=== PATIENT | female | born 1955 | race Caucasian/White ===

== ENCOUNTER 2019-01-20 04:46 | Inpatient (IN) | payer OTHER ==
[~2019-01-20] VITALS: Ht 167.6 cm; Wt 98.3 kg
[~2019-01-20 04:46] MED LIST: LEVFLO500 PO; METR250 PO; TOLN45 TOP
[2019-01-20 05:35] LABS: PCO2 Arterial 38.1 mmHg (35-45); PO2 Arterial 406 mmHg (80-100); pH Blood Arterial 7.44 (7.35-7.45)
[2019-01-20 05:42] LABS: BASOPHILS ABSOLUTE AUTO 0.03 K/mm3 (0.00-0.23); BASOPHILS PERCENT AUTO 0 % (0-2); EOSINOPHILS PERCENT AUTO 0 % (0-6); Hematocrit 39.4 % (33.0-51.0); Hemoglobin 14.4 g/dL (11.5-16.0); IMMATURE GRAN ABSOLUTE AUTO 0.05 K/mm3 (0.00-0.10); IMMATURE GRAN PERCENT AUTO 1 % (0-1); LYMPHOCYTES ABSOLUTE AUTO 0.44 K/mm3 (0.84-5.20); LYMPHOCYTES PERCENT AUTO 6 % (21-46); MONOCYTES ABSOLUTE AUTO 0.32 K/mm3 (0.16-1.47); MONOCYTES PERCENT AUTO 4 % (4-13); Mean Corpuscular HGB 35.9 pg (26.0-34.0); Mean Corpuscular HGB Conc 36.5 g/dL (31.5-36.5); Mean Corpuscular Volume 98 fL (80-100); Mean Platelet Volume 9.8 fL (9.1-12.4); NEUTROPHILS ABSOLUTE AUTO 7.12 K/mm3 (1.96-9.15); NEUTROPHILS PERCENT AUTO 90 % (41-73); Platelet Count 254 K/mm3 (150-400); RDW Coefficient Variation 12.9 % (11.7-14.2); RDW Standard Deviation 46.2 fL (35.1-46.3); Red Blood Cell Count 4.01 M/mm3 (3.80-5.20); White Blood Cell Count 7.96 K/mm3 (4.00-11.30)
[2019-01-20 05:47] LABS: Alanine Aminotransfer (ALT/SGP 29 U/L (12-78); Albumin, Blood 3.7 g/dL (3.4-5.0); Alk Phos 72 U/L (50-136); Anion Gap 15 mmol/L (6-16); Aspartate Aminotrans (AST/SGOT 40 U/L (12-37); Bilirubin, Total 0.7 mg/dL (0.1-1.0); Blood Urea Nitrogen 13 mg/dL (8-24); CO2, Blood 23 mmol/L (21-32); Calcium, Blood 11.9 mg/dL (8.5-10.1); Chloride, Blood 96 mmol/L (98-108); Globulin, Blood 3.7 g/dL (2.2-4.0); Glomerular Filtration Rate 44 (60-); Glucose, Blood 141 mg/dL (70-99); Potassium, Blood 3.1 mmol/L (3.5-5.5); Sodium, Blood 134 mmol/L (136-145); Total Protein, Blood 7.4 g/dL (6.4-8.2); Troponin I <0.015 ng/mL (0.000-0.040)
[2019-01-20 06:20] LABS: Source, Urine Catheter
[2019-01-20 06:21] LABS: Bilirubin, Urine Neg (Neg); Blood, Urine 3+ (Neg); Glucose Qualitative, Urine Neg (Neg); Ketones, Urine 1+ (Neg); Leukocyte Esterase, Urine Neg (Neg); Nitrite, Urine Neg (Neg); Protein, Urine 3+ (Neg); Specific Gravity, Urine 1.015 (1.003-1.022); Urobilinogen, Urine NORM (Normal)
[2019-01-20 06:24] LABS: Appearance, Urine Clear (Clear); Color, Urine Yellow (P-Yellow)
[2019-01-20 06:32] LABS: Bacteria Rare /hpf; Squamous Epithelial Cells Rare /hpf (Few)
[2019-01-20 06:35] LABS: U Amphetamine Screen Not Detected; U Barbituate Screen Not Detected; U Benzodiazapine Screen Not Detected; U Buprenorphine Screen Not Detected; U Cannabinoids Screen Not Detected; U Cocaine Screen Not Detected; U Methadone Screen Not Detected; U Methamphetamine Screen Not Detected; U Opiates Screen Not Detected; U Oxycodone Screen Not Detected; U Phencyclidine Screen Not Detected; U Propoxyphene Screen Not Detected
[2019-01-20 10:03] LABS: Albumin, Blood 3.7 g/dL (3.4-5.0); Anion Gap 13 mmol/L (6-16); Blood Urea Nitrogen 13 mg/dL (8-24); Bun/Creatinine Ratio 11.2 (12.0-20.0); CO2, Blood 24 mmol/L (21-32); Calcium, Blood 11.6 mg/dL (8.5-10.1); Chloride, Blood 95 mmol/L (98-108); Creatinine, Blood 1.16 mg/dL (0.40-1.00); Glomerular Filtration Rate 50 (60-); Glucose, Blood 99 mg/dL (70-99); Phosphorus, Blood 2.2 mg/dL (2.5-4.9); Potassium, Blood 3.5 mmol/L (3.5-5.5); Sodium, Blood 132 mmol/L (136-145)
--- NOTE | 2019-01-20 11:18 | NUR ---
ADMIT: PT ARRIVED TO ICU 9 AT 0955, SEDATED AND INTUBATED. PT GETS VERY RESTLESS WITH PAINFUL SITMULI, BUT DOESN'T OPEN HER EYES. SPOKE WITH DR. GIL ABOUT CONSULT. RECEIVED OK TO PLACE ORDER FOR SPUTUM CULTURE, VAP PROTOCOL AND PROPOFOL. PT'S AT THE BEDSIDE. UPDATED HIM ON PLAN OF CARE. CONTINUING TO MONITOR.
--- NOTE | 2019-01-20 12:14 | NUR ---
DID A SEDATION VACATION. PT WAS OFF SEDATION FOR ABOUT 20 MINS AND WAS ATTEMPTING TO REACH FOR ETT. WOULD OPEN EYE'S ON COMMAND AND ABLE TO TRACK A LITTLE BIT. OTHERWISE DOES NOT FOLLOW COMMANDS AND GETS AGITATED. PLACED BACK ON PROPOFOL PER DR. GIL AND AWAITING EEG. AT BEDSIDE.
--- NOTE | 2019-01-20 13:20 | NUR ---
FISHING HAND IN THE ROOM CONNECTING PT.
--- NOTE | 2019-01-20 15:29 | NUR ---
PT WAS OFF OF SEDATION FOR ONE HOUR FOR EEG. NOT FOLLOWING COMMANDS AND AGITATED. REACHES FOR ETT AND WILL TRACK WITH EYE'S. PLACED BACK ON SEDATION AFTER EEG. DR. GIL HERE AND UPDATED.
--- NOTE | 2019-01-20 16:55 | NUR ---
SHIFT SUMMARY: PT REMAINED INTUBATED TODAY. IT WAS REPORTED THAT WHEN SEDATION WAS LIFTED PT MOVED AROUND, BUT DID NOT FOLLOW ANY COMMANDS. AWAITING NEURO CONSULT. LUNGS ARE CLEAR, ONLY SMALL AMT OF SPUTUM PRODUCTION. PT IS SR WITH FREQUENT PACS. SBP IN THE 140-160S. HARP WITH YELLOW OUTPUT. PT HAS SMALL BRUISE DARKENING ON HER UPPER R FOREHEAD THAT PT'S STATES IS LIKELY FROM HER FALL THIS MORNING. PT'S HSUBAND HAS REMAINED AT THE BEDSIDE THROUGHOUT THE DAY WITH SHORT BREAKS TO EAT. HE HAS BEEN FULLY UPDATED BY NURSING STAFF AND DR. GIL.
--- NOTE | 2019-01-20 19:20 | NUR ---
START OF SHIFT: DR. PRINCE AT BEDSIDE TALKING WITH SPOUSE. PT OFF SEDATION FOR NEURO ASSESSMENT. PT PLACED BACK ON SEDATION PER DR. PRINCE VERBAL. PT AGITATED T/O ASSESSMENT NOT FOLLOWING COMMANDS; OPENED EYES BRIEFLY, SEEMED TO TRACK MOMENTARILY; PUPILS VANE 2mm. PT ON VENT: A/C 16, Vt 450, PEEP 5; FiO2 30.
--- NOTE | 2019-01-20 20:32 | NUR ---
SCD'S: PEDAL PULSES VERIFIED VIA DOPPLER AND WERE + X4. FEET COLD. SCD'S PLACED.
--- NOTE | 2019-01-21 02:26 | NUR ---
PT RESPONDING TO ACTIVITY. AGITATION WITH MOVEMENT AND BEDBATH. PT OPENING EYES TO NAME WITH SEDATION. LS REMAIN CLEAR. VSS. VENT SETTINGS 16, 450, PEEP 5, FiO2 30%. SPOUSE REMAINS IN ROOM.
--- NOTE | 2019-01-21 05:52 | NUR ---
WEAN BETWEEN [id number] WHILE SEDATION OFF. LAB TO BEDSIDE WITH 4 ATTEMPTS TO DRAW FOR LABS NO SUCCESS. PT VERY AGITATED DURING THIS. BOTH IV'S NOT PATENT ONCE PT DONE WITH WEAN. AFTER SEVERAL ATTEMPTS ONE IV ESTABLISHED. WILL SUGGEST PICC TO DAY SHIFT RN.
--- NOTE | 2019-01-21 06:24 | NUR ---
DR. PRINCE: CALLED AND LEFT MESSAGE TO CALL BACK RE: PT'S ONE IV ACCESS AND NOT ABLE TO DRAW BLOOD FOR LABS. WILL PASS ONTO DAY RN.
--- NOTE | 2019-01-21 06:41 | NUR ---
CALL TO DR. GIL: DR. GIL UPDATED. NEW ORDER TO PLACE PICC LINE.
--- NOTE | 2019-01-21 07:30 | NUR ---
ASSUMED CARE OF PATIENT; SEE ASSESSMENT CHARTING FOR DETAILS. PATIENT SEDATED AND ON VENTILATOR; NO SETTING CHANGES FROM LENS EDGE GRINDER MACHINE READINGS. BILAT. SOFT WRIST RESTRAINTS REMAINS IN PLACE TO PREVENT SELF EXTUBATION. LUNGS CLEAR; NO ACUTE RESP. DISTRESS NOTED. OGT TO LIS AND DRAINING BILE/BROWN SECRETIONS. HARP TO GRAVITY AND DRAINING SMALL TO MODERATE AMOUNTS OF LIGHT, YELLOW URINE. IVF OF NS INFUSING AT 125ML/HR AND PROPOFOL DRIP AT 50MCG/KG/MIN. FOR SEDATION; VSS.
--- NOTE | 2019-01-21 08:30 | NUR ---
PILO MACHADO RN AND LAKESHA COTO RN HERE TO PLACE PICC LINE. RN WOKE UP PATIENTS' SPOUSE; VERBAL CONSENT GIVEN TO ALLOW PLACEMENT OF LINE.
--- NOTE | 2019-01-21 09:15 | NUR ---
PICC LINE IN PLACE; 8CM OUT FROM INSERTION POINT. LABS DRAWN (6 TUBES) FROM PICC LINE AND SENT TO LAB WITH PATIENTS LABELS IN PLACE; MULTIPLE LAB TESTS ORDERED.
[2019-01-21 09:55] LABS: BASOPHILS ABSOLUTE AUTO 0.01 K/mm3 (0.00-0.23); BASOPHILS PERCENT AUTO 0 % (0-2); EOSINOPHILS ABSOLUTE AUTO 0.03 K/mm3 (0.00-0.68); EOSINOPHILS PERCENT AUTO 0 % (0-6); Hemoglobin 11.8 g/dL (11.5-16.0); IMMATURE GRAN ABSOLUTE AUTO 0.04 K/mm3 (0.00-0.10); IMMATURE GRAN PERCENT AUTO 0 % (0-1); LYMPHOCYTES ABSOLUTE AUTO 0.33 K/mm3 (0.84-5.20); LYMPHOCYTES PERCENT AUTO 4 % (21-46); MONOCYTES ABSOLUTE AUTO 0.58 K/mm3 (0.16-1.47); MONOCYTES PERCENT AUTO 7 % (4-13); Mean Corpuscular HGB Conc 35.8 g/dL (31.5-36.5); Mean Platelet Volume 10.5 fL (9.1-12.4); NEUTROPHILS PERCENT AUTO 89 % (41-73); Platelet Count 190 K/mm3 (150-400); RDW Coefficient Variation 13.2 % (11.7-14.2); RDW Standard Deviation 48.6 fL (35.1-46.3); Red Blood Cell Count 3.28 M/mm3 (3.80-5.20); White Blood Cell Count 8.89 K/mm3 (4.00-11.30)
--- NOTE | 2019-01-21 10:00 | NUR ---
k+ LEVEL 2.3; CALLED TO DR. RAMIRES; SEE ORDERS. K+ RIDERS ORDERED.
[2019-01-21 10:06] LABS: Mean Corpuscular Volume 101 fL (80-100)
[2019-01-21 10:28] LABS: Free Thyroxine 1.11 ng/dL (0.70-1.60); Thyroid Stimulating Hormone 0.706 uIU/mL (0.360-4.800); Triiodothyronine, Free 1.77 pg/mL (2.18-3.98)
[2019-01-21 10:31] LABS: Bun/Creatinine Ratio 8.5 (12.0-20.0); Calcium, Blood 9.4 mg/dL (8.5-10.1); Creatinine, Blood 1.29 mg/dL (0.40-1.00); Potassium, Blood 2.3 mmol/L (3.5-5.5)
[2019-01-21 11:43] LABS: Magnesium, Blood 1.1 mg/dL (1.6-2.4)
--- NOTE | 2019-01-21 11:45 | NUR ---
LAB RESULTS FOR MAG. OF 1.1. AND PHOS OF 2.[address] RAMIRES; SEE FURTHER ORDERS.
[2019-01-21 12:37] LABS: Test Name 419
--- NOTE | 2019-01-21 13:15 | NUR ---
OGT DISCONNECTED FROM SUCTION; TUBE FEEDING OF VITAL HP STARTED; 15ML/HR; SEE FURTHER ORDERS FROM OLIVE BRINE TESTER.
--- NOTE | 2019-01-21 13:30 | NUR ---
DR. FINK IN TO SEE PATIENT AND SPOKE TO SPOUSE. ADDED ANOTHER BAG OF MAG 1GM IVPB AND RECHECK LABS AT 1900.
--- NOTE | 2019-01-21 16:40 | NUR ---
DR. PRINCE CALLED; WANTS RN TO TURN OFF PROPOFOL DRIP AT 1740 AND HE WILL ARRIVE TO SEE PATIENT AROUND 1800.
--- NOTE | 2019-01-21 18:00 | NUR ---
SUMMARY: SPOUSE HERE; PLEASANT AND PATIENT; AWAITING DR. PRINCE TO ARRIVE. PATIENT SL. RESTLESS AND WILL OPEN EYES SPONT. BUT DIFF TO DIETETIC TECHNICIAN REGISTERED FOCUS/ETC. ALL EXTREM. MOVE BUT NOT FOLLOWING COMMANDS. NO ACUTE CHANGES; OFF PROFPOFOL DRIP FOR SHORT TERM TIL AFTER SURESH EVAL. WILL REPORT TO ONCOMING RN.
--- NOTE | 2019-01-21 18:25 | NUR ---
DR. PRINCE HERE; SPOKE TO SPOUSE AND EXAMINED PATIENT; SEE PROGRESS NOTES. HE WILL BE GONE THIS W/E BUT WILL RETURN THURSDAY AND SEE PATIENT BETWEEN 2-5PM. PHYSICIAN TO SPEAK WITH DR. FINK AND WILL LET HER KNOW IF SHE HAS QUESTIONS SHE MAY CALL HIM FOR DIRECTION.
[2019-01-21 19:55] LABS: Magnesium, Blood 1.5 mg/dL (1.6-2.4)
[2019-01-21 20:02] LABS: Phosphorus, Blood 2.5 mg/dL (2.5-4.9); Potassium, Blood 2.4 mmol/L (3.5-5.5)
--- NOTE | 2019-01-21 21:19 | NUR ---
PT INTUBATED AND SEDATED WITH PROPOFOL. WILL OPEN EYE'S TO VOICE AND GRIMACES TO NOXIOUS STIMULI. GROSS MOVEMENT OF ALL EXTREMITIES. CALLED DR. FINK ABOUT POTASSIUM AND MAG LEVELS. NEW ORDERS FOR MAG AND KCL RIDERS. SEE ASSESSMENT.
[2019-01-22 04:42] LABS: Magnesium, Blood 1.9 mg/dL (1.6-2.4)
[2019-01-22 04:44] LABS: Bun/Creatinine Ratio 8.7 (12.0-20.0); Calcium, Blood 8.1 mg/dL (8.5-10.1); Creatinine, Blood 1.27 mg/dL (0.40-1.00); Phosphorus, Blood 2.5 mg/dL (2.5-4.9)
--- NOTE | 2019-01-22 05:19 | NUR ---
CALLED DR. FINK ABOUT POTASSIUM, PHOS AND MG LEVEL. NEW ORDERS RECEIVED FOR KCL AND MG RIDER.
--- NOTE | 2019-01-22 06:05 | NUR ---
SUMMARY PT INTUBATED AND SEDATED WITH PROPOFOL. SEDATION VACATION THIS AM FOR SBT. PT WAS MORE CALM THAN PREVIOUS DAY BUT STILL UNABLE TO FOLLOW COMMANDS. TRACKS WITH EYE'S. TOLERATING TF WITH NO RESIDUAL ALL NIGHT. PT GOT A TOTAL OF 100MEQ OF KCL AND 3GM OF MG DURING THE NIGHT. NO SEIZURE ACTIVITY NOTED.
[2019-01-22 08:09] LABS: THYROID PEROXIDASE (TPO) AB 8 IU/mL (0-34)
--- NOTE | 2019-01-22 10:17 | NUR ---
PT'S SPOUSE AT BEDSIDE UPDATED ON PT STATUS AND PLAN FOR THE DAY. SO ASKED IF PT HAD BEEN TESTED FOR A UTI, BUT OTHERWISE NO OTHER QUESTIONS AT THIS TIME. PT COMFORTABLE & QUIET.
[2019-01-22 16:35] LABS: Magnesium, Blood 1.8 mg/dL (1.6-2.4); Potassium, Blood 3.1 mmol/L (3.5-5.5)
--- NOTE | 2019-01-22 17:33 | NUR ---
SHIFT SUMMARY: PT HAS BEEN OFF OF SEDATION SINCE 1445. PT HAS BEEN CALM WITH ONLY MINOR SIGNS OF AGGITATION WHEN REPOSITIONING OR PERFORMING ORAL CARE. PT WILL TRACK WITH EYES BUT LOSES FOCUS QUICKLY. PT RESPONDED TO VERBAL COMMANDS TO SQUEEZE HANDS A FEW TIMES, BUT WAS NOT CONSISTANT. VENT SETTINGS SWITCHED TO PS 15 WITH A PEEP OF 5. PT SATS HAVE REMAINED IN HIGH 90'S AND RESPIRATIONS IN THE 20'S. PT'S SPOUSE WAS HERE MOST OF DAY, LEFT ABOUT 1630. PT RESTING CALMLY AT THIS TIME.
[2019-01-22 21:05] LABS: THYROGLOBULIN ANTIBODY <1.0 IU/mL (0.0-0.9)
--- NOTE | 2019-01-22 22:22 | NUR ---
PT INTUBATED ON SPONTANEOUS. NO SEDATION. PT DOES NOT FOLLOW COMMANDS AND DOES NOT NOD TO QUESTIONS. JUST STARES BLANKLY. PT'S PERIAREA IS SORE. WHILE CLEANING UP BM SHE WAS GRIMACING, RESTLESS, AND BRACING. GAVE FENTANYL PER ORDERS.
[2019-01-23 04:35] LABS: BASOPHILS ABSOLUTE AUTO 0.02 K/mm3 (0.00-0.23); BASOPHILS PERCENT AUTO 0 % (0-2); EOSINOPHILS ABSOLUTE AUTO 0.09 K/mm3 (0.00-0.68); EOSINOPHILS PERCENT AUTO 1 % (0-6); Hematocrit 31.9 % (33.0-51.0); Hemoglobin 11.3 g/dL (11.5-16.0); IMMATURE GRAN ABSOLUTE AUTO 0.08 K/mm3 (0.00-0.10); IMMATURE GRAN PERCENT AUTO 1 % (0-1); LYMPHOCYTES ABSOLUTE AUTO 0.39 K/mm3 (0.84-5.20); LYMPHOCYTES PERCENT AUTO 5 % (21-46); MONOCYTES ABSOLUTE AUTO 0.51 K/mm3 (0.16-1.47); MONOCYTES PERCENT AUTO 6 % (4-13); Mean Corpuscular HGB 35.9 pg (26.0-34.0); Mean Corpuscular HGB Conc 35.4 g/dL (31.5-36.5); Mean Corpuscular Volume 101 fL (80-100); Mean Platelet Volume 10.6 fL (9.1-12.4); NEUTROPHILS ABSOLUTE AUTO 7.07 K/mm3 (1.96-9.15); NEUTROPHILS PERCENT AUTO 87 % (41-73); Platelet Count 177 K/mm3 (150-400); RDW Coefficient Variation 13.5 % (11.7-14.2); Red Blood Cell Count 3.15 M/mm3 (3.80-5.20); White Blood Cell Count 8.16 K/mm3 (4.00-11.30)
[2019-01-23 04:50] LABS: Bun/Creatinine Ratio 10.1 (12.0-20.0); Calcium, Blood 7.9 mg/dL (8.5-10.1); Creatinine, Blood 0.99 mg/dL (0.40-1.00); Magnesium, Blood 1.5 mg/dL (1.6-2.4); Phosphorus, Blood 1.9 mg/dL (2.5-4.9)
[2019-01-23 04:59] LABS: PCO2 Arterial 31.3 mmHg (35-45); pH Blood Arterial 7.43 (7.35-7.45)
--- NOTE | 2019-01-23 06:23 | NUR ---
SUMMARY PT INTUBATED NO SEDATION. PT IS NOW ABLE TO NOD YES OR NO TO QUESTIONS. REMAINS CALM AND FOLLOWING SOME SIMPLE COMMANDS. GAVE FENTANYL A COUPLE TIMES WHEN PT LOOKED UNCOMFORTABLE WITH CNVI OF 3. TOLERATING TUBE FEED WITH NO RESIDUAL ALL NIGHT. HAS BEEN HAVING SMALL LIQUID BM'S ALL NIGHT. CALLED DR. FINK ABOUT ABNORMAL LABS THIS AM. NEW ORDERS FOR Owlr RIDER RECEIVED.
--- NOTE | 2019-01-23 09:40 | NUR ---
EXTUBATE: DR. FINK CAME AND SAW PT ALERT, FOLLOWING COMMANDS. GAVE ORDERS TO EXTUBATE. RT NOTIFIED AND PT EXTUBATED AT 0934. PT PLACED ON 4L/NC, SPO2 95%. PT HAS A WEAK COUGH, COUGHING UP SM AMT OF SPUTUM. INSTRUCTED ON HOW TO USE YANKAUER TO HELP CLEAR SECRETIONS OUT OF ORAL CAVITY AND DEMONSTRATED UNDERSTANDING. EDUCATION GIVEN ON WHEN PT WILL BE ABLE TO TRY EATING AND DRINKING.
[2019-01-23 11:33] LABS: Hematocrit 36.1 % (33.0-51.0); Hemoglobin 12.7 g/dL (11.5-16.0)
[2019-01-23 11:47] LABS: International Normalized Ratio 0.99; Prothrombin Time Results 10.5 Sec (9.7-11.5)
--- NOTE | 2019-01-23 12:43 | NUR ---
PT'S RESP RATE IN THE MID 30S AND BREATHING IS BEGINNING TO LOOK MORE LABORED. SPO2 REMAINS MID 90S ON 4L/NC. PT IS REQUIRING NT SUCTIONING TO REMOVE SECRETIONS. DR. FINK NOTIFIED OF THIS AND GAVE ORDERS TO START BIPAP. RT KIMMIE NOTIFIED.
--- NOTE | 2019-01-23 15:49 | NUR ---
PT BECOMING MORE VERBAL. GESTURED TO HAVE BIPAP OFF, AND THEN ASKED FOR CHAPSTICK. PT COOPERATING WITH BIPAP.
[2019-01-23 16:27] LABS: Magnesium, Blood 1.6 mg/dL (1.6-2.4); Phosphorus, Blood 2.1 mg/dL (2.5-4.9)
--- NOTE | 2019-01-23 18:35 | NUR ---
SHIFT SUMMARY: PT EXTUBATED TODAY AND PUT ON BIPAP. PT TOLERATING BIPAP WELL AT THIS TIME. PT HAS MOMENTS OF CONFUSION, BUT HAS BEEN COOPERATIVE MOST OF THE DAY. PT FORGETS LIMMITATIONS AND ATTEMPTED TO GET OUT OF BED. PLACED IN SOFT LEG RESTRAINTS AND HANDLING WELL, NOT FIGHTING RESTRAINTS. PT IS ABLE TO TALK WHEN BIPAP IS OFF, BUT HAS TROUBLE WITH WORD RECOGNITION. PT CALM AND RESTING COMFORTABLY AT THIS TIME.
--- NOTE | 2019-01-23 20:31 | NUR ---
PT RESTING IN BED. A/O TO PERSON, MONTH AND YEAR. STATES MAY 5TH DATE. SEEMS TO HAVE DIFFICULTY FINDING HER WORDS AT TIMES. PLEASANT AND COOPERATIVE WITH CARE. ABLE TO DO HER OWN ORAL CARE WITH A LITTLE ASSISTANCE SETTING IT UP. WEARING THE BIPAP AND DOING WELL ON IT. NO SIGN OF DISTRESSS. SEE ASSESSMENT.
[2019-01-24 03:27] LABS: BASOPHILS ABSOLUTE AUTO 0.03 K/mm3 (0.00-0.23); BASOPHILS PERCENT AUTO 0 % (0-2); EOSINOPHILS ABSOLUTE AUTO 0.05 K/mm3 (0.00-0.68); EOSINOPHILS PERCENT AUTO 1 % (0-6); Hematocrit 37.1 % (33.0-51.0); Hemoglobin 12.8 g/dL (11.5-16.0); IMMATURE GRAN ABSOLUTE AUTO 0.08 K/mm3 (0.00-0.10); IMMATURE GRAN PERCENT AUTO 1 % (0-1); LYMPHOCYTES PERCENT AUTO 4 % (21-46); MONOCYTES ABSOLUTE AUTO 0.69 K/mm3 (0.16-1.47); MONOCYTES PERCENT AUTO 8 % (4-13); Mean Corpuscular HGB 35.5 pg (26.0-34.0); Mean Corpuscular HGB Conc 34.5 g/dL (31.5-36.5); Mean Corpuscular Volume 103 fL (80-100); Mean Platelet Volume 9.6 fL (9.1-12.4); NEUTROPHILS ABSOLUTE AUTO 7.12 K/mm3 (1.96-9.15); NEUTROPHILS PERCENT AUTO 86 % (41-73); Platelet Count 239 K/mm3 (150-400); RDW Coefficient Variation 13.3 % (11.7-14.2); RDW Standard Deviation 50.6 fL (35.1-46.3); Red Blood Cell Count 3.61 M/mm3 (3.80-5.20); White Blood Cell Count 8.27 K/mm3 (4.00-11.30)
[2019-01-24 03:42] LABS: Anion Gap 11 mmol/L (6-16); Blood Urea Nitrogen 11 mg/dL (8-24); Bun/Creatinine Ratio 12.5 (12.0-20.0); CO2, Blood 24 mmol/L (21-32); Chloride, Blood 110 mmol/L (98-108); Creatinine, Blood 0.88 mg/dL (0.40-1.00); Glomerular Filtration Rate >60 (60-); Glucose, Blood 112 mg/dL (70-99); Magnesium, Blood 1.3 mg/dL (1.6-2.4); Potassium, Blood 3.2 mmol/L (3.5-5.5); Sodium, Blood 145 mmol/L (136-145)
[2019-01-24 04:50] LABS: PCO2 Arterial 31.8 mmHg (35-45); PO2 Arterial 83.4 mmHg (80-100); pH Blood Arterial 7.48 (7.35-7.45)
--- NOTE | 2019-01-24 06:18 | NUR ---
SUMMARY PT HAS BEEN RESTLESS ALL NIGHT. DID NOT SLEEP AT ALL. PT WILL ANSWER SOME QUESTIONS APPROPRIATELY BUT IS FORGETFUL. HAS TROUBLE FINDING HER WORDS AT TIMES. CALLED DR. FINK THIS AM ABOUT MG, PHOS, AND POTASSIUM LEVEL. NEW ORDERS FOR MG AND KPHOS RIDERS. WORE BIPAP HALF OF THE SHIFT THEN WAS ON 3L NC FOR THE REST. DOES WELL ON NC AND DOES NOT DESAT. COUGH IS GETTING A LITTLE STRONGER WITH COACHING FROM RN. NO SIGN OF DISTRESS.
--- NOTE | 2019-01-24 07:05 | NUR ---
ASSUMED CARE: RECEIVED REPORT FROM NOC RN. PT AWAKE UPON ENTERING ROOM. ANKLE RESTRAINTS AND VEST IN PLACE. PT STATES NEEDING TO BE CLEANED UP R/T BM. SMALL SMEAR NOTED ON CLEMENTE PAD CHANGED AND CLEANED PT UP. BP CUFF ADJUSTED. WILL CONTINUE TO MONITOR AND ASSESS FURTHER.
--- NOTE | 2019-01-24 09:00 | NUR ---
AT BEDSIDE: DR FINK CAME IN TO ASSESS PT. POVIDED PT WITH WATER AND MOUTH SWAB TO WET MOUTH UNTIL SPEECH EVAL IS ABLE TO BE DONE.
--- NOTE | 2019-01-24 09:30 | NUR ---
ASSESSMENT: DURING ASSESSMENT PT IS NOTED TO BE ABLE TO STATE PERSON, PLACE, DATE AND PRESEDENT, BUT STILL REMAINS SLOW TO RESPOND. WHEN TELLING PT TO NOT PULL AT BLOOD PRESSURE CUFF AND IT MUST REMAIN ON PT STATES "I KNOW", BUT THEN CONTINUES TO PULL ON AND ATEMPT TO PULL OFF. PT IS VERY IMPULSIVE AND APPEARS TO HAVE A HARD TIME FOLLOWING DIRECTIONS AT TIMES. LEG RESTRAINTS REMOVED, BUT VEST TO REMAIN AT THIS TIME. LUNGS SOUND COURSE, PT ENCOURAGED TO COUGH. COUGH IS NOTED TO BE VERY WEAK, BUT ENCOURAGED PT TO CONTINUE TO TRY TO INCREASE COUGH. SOUNDED THOUGH PT WAS ABLE TO CLEAR AIR WAY A BIT, BUT LUNGS STILL SOUND A BIT COURSE ALTHOUGH NOT BAD. WILL CONTINUE TO MONITOR AND ASSESS FURTHER.
[2019-01-24 11:33] LABS: Magnesium, Blood 1.8 mg/dL (1.6-2.4); Phosphorus, Blood 2.4 mg/dL (2.5-4.9); Potassium, Blood 3.2 mmol/L (3.5-5.5)
--- NOTE | 2019-01-24 11:51 | NUR ---
TROUSSEAU SIGN: TAKING PT BLOOD PRESSURE SHE C/O "CRAMPING" AND IS UNABLE TO BE STILL WITH THE BP CUFF ON HER LEG. BP CUFF MOVED TO THE R UPPER ARM AND PT IS NOTED TO BE SHOWING THE TROUSSEAU SIGN. CALCIUM IS NOTED TO BE A LITTLE LOW. DR FINK IS NOTIFIED OF THE LOW CALCIUM AND TROUSSEAU SIGN AT THIS TIME.
--- NOTE | 2019-01-24 13:29 | NUR ---
PATIENT PERMISSION PATIENT GAVE PERMISSION FOR THIS STUDENT NURSE TO PROVIDE CARE ON 01/25/19 FROM [id number].
--- NOTE | 2019-01-24 15:08 | NUR ---
HALUCINATIONS: IN THE ROOM STATES PT IS "SEEING THINGS". PT IS ABLE TO STATE PER, PLACE, DATE, AND PRESIDENT. REPORTS PT THINKING YELLOW SOCKS ACROSS THE ROOM ARE BARRITOS, THE HAND SOAP PUMP IS AN ELEPHANT, AND THE GLOVES ARE BOXS OF CIGARETTES. WILL CONTINUE TO MONITOR.
--- NOTE | 2019-01-24 17:11 | NUR ---
MRI: ACCOMPANIED PT TO MRI. PT WAS UNABLE TO REMAIN STILL FOR THE ENTIRE TEST SO HAD TO BE CUT SHORT. PT COMES OUT STATING IT WAS HOT IN THERE AND SHE STARTED TO WORRY BECAUSE THINGS WERE STARTING TO MELT AROUND HER INCLUDING THE CALL BUTTON THE CONTACT CENTER ANALYST HANDED HER PRIOR TO THE TEST STARTING.
--- NOTE | 2019-01-24 18:08 | NUR ---
SHIFT SUMMARY: NO ACUTE DISTRESS NOTED T/O THE SHIFT. PT HAS SHOWN SOME FORGETFULNESS, AND IMPULSIVNESS. PT HAS BEEN ON RA T/O THE DAY WITH SATS IN THE HIGH 90'S. BP HAS BEEN ELIVATED WITH ACTIVITY AND AGITATION. PT HAS A TENDENCY TO PICK AT THINGS, BLOOD PRESSURE CUFF, SOCKS, GOWN, SHEETS AND SO ON. WHEN PHYSICAL THERAPY WORKED WITH THE PT IT WAS NOTED THE PT WOULD BECOME DISTRACTED EASILY, PICKING AT SOME PAPER ON THE GROUND OR ON A TABLE AND SO FORTH. PT IS EASILY REDIRECTABLE. PT WAS NOTED TO BE SHOWING TROUSSEAUS SIGN THIS SHIFT, RECEIVED ORDERS TO ADMINISTER CALCIUM GLUCONATE. CALL LIGHT WITHIN REACH. BED IN LOWEST POSSITION BED ALARM ON. WILL CONTINUE TO MONITOR AND REPORT TO CHARLI CERRATO.
--- NOTE | 2019-01-24 19:43 | NUR ---
PATIENT AWAKE ANSWERING QUESTIONS APPROPRIATELY , YET FORGETFUL. PATIENT HAVING VISUAL HALLUCINATIONS, SEEING A MAN AT THE HEAD OF HER BED. WHEN POINTED OUT THAT IT WAS HER SUCTION CANISTER AND HEART MONITOR PATIENT STATES "OH HE MUST HAVE LEFT". PATIENT INCONT OF SMALL BM ATTENDS PLACED. BED ALARM AND VEST ERMELINDA IN PLACE.
--- NOTE | 2019-01-24 23:07 | NUR ---
REPORT CALLED TO KALI RN, PATIENT TRANSFER VIA W/C TO PCU 8. PATIENT CONTINUES TO BE FORGETFUL AND NEED FREQUENT REMINDERS. VEST ERMELINDA REMAINS IN PLACE. PATIENT JU PO MEDICATIONS WITHOUT DIFFICULTY. SLIGHT SOB WITH TRANSFER TO CHAIR. VERY IMPULSIVE.
--- NOTE | 2019-01-24 23:30 | NUR ---
ASSUMED CARE PT ARRIVES TO U8 FROM ICU AT APPROXIMATELY 2330. PT CURRENTLY ANSWERS ORIENTATION QUESTIONS APPROPRIATELY, BUT IS FORGETFUL. AMBULATES FROM WHEELCHAIR TO BED WITH ONE PERSON ASSIST. PT IS VERY UNSTEADY ON FEET AND INSISTANT ON WALKING TO RESTROOM INSTEAD OF USING COMMODE. PT EDUCATED ON CURRENT STRENGTH LIMITATIONS AND UNSTEADINESS AND AGREES TO USE OF COMMODE. PT IS CURRENTLY COOPERATIVE WITH CARE. PULLS AT CORDS, GOWN, AND IV TUBING, BUT RE-ORIENTS WELL, THOUGH ONLY TEMPORARILY. PT ORIENTED TO ROOM AND CALL LIGHT AND ENCOURAGED TO CALL FOR ASSISTANCE WITH NEEDS AND AMBULATION. PT VERBALIZES UNDERSTANDING AT THIS TIME. ERMELINDA VEST IN PLACE AND PT EDUCATED ON ITS PURPOSE- SEE RESTRAINT CHARTING. WILL CONTINUE TO MONITOR. BED IN LOW POSITION,CALL LIGHT IN REACH. BED ALARM SET FOR SAFETY.
--- NOTE | 2019-01-25 05:52 | NUR ---
SHIFT SUMMARY PT CONTINUED TO ANSWER ALL ORIENTATION QUESTIONS APPROPRIATELY THROUGHOUT REMAINDER OF NIGHT , BUT HAD MULTIPLE EPISODES OF FORGETFULLNESS AND HAD SOME NONSENSICAL SPEECH ASKING "IF WE CAN GO BACK TO THE BEGINNING AND START OVER" AND "I DON'T WANT TO DO THIS HERE" - PT WAS UNABLE TO ELABORATE ON HER MEANING. PT ALSO HALLUCINATING A MAN STANDING AT THE HEAD OF HER BED AND A WOMAN IN THE ROOM AT ONE POINT. ERMELINDA VEST REMAINS IN PLACE DUE TO PATIENT ATTEMPTS AT SELF AMBULATION AND UNSUCCESSFUL REDIRECTION- SEE RESTRAINT CHARTING. PT MEDICATED ONCE FOR PAIN THAT DECREASED WITH ORDERED MEDICATIONS. HYPERTENSION NOTED THIS AM, MEDICATED WITH HYDRALAZINE PER ORDERS WITH NOTED DECREASE IN BP. PT CONTINUES TO AMBULATE WITH 1-2 PERSON ASSIST TO BSC- CONTINUES TO BE UNSTEADY ON FEET. NO OTHER CHANGES FROM INITIAL ASSESSMENT. WILL CONTINUE TO MONITOR AND REPORT TO ONCOMING SHIFT RN. BED IN LOW POSITION, CALL LIGHT INREACH. BED ALARM SET FOR SAFETY.
--- NOTE | 2019-01-25 08:00 | NUR ---
INITIAL ASSESSMENT: PT IS RESTING ON HER RIGHT SIDE WITH THE COVERS UP OVER HER HEAD PT EASILY AWAKENS WITH ASSESSMENT. PT IS LETHARGIC, OX3. WHEN ASKED QUESTIONS, PT IS VERY SLOW TO RESPOND AND NOT ABLE TO FORM A COMPLETE THOUGHT. WITH ASSISTACE PT IS ABLE TO GET OUT WHAT SHE IS TRYING TO SAY. PT STATES, "I JUST DON'T FEEL RIGHT."-WHEN REFERRING TO MENTATION. PT IS VERY APOLOGETIC ABOUT GETTING OUT OF BED AND WANDERING AROUND THE ROOM LAST HS. PT STATES SHE, "DOESN'T KNOW WHY I DO WHAT I DO." CENTRAL SUPPLY NURSE EQUAL AND STRONG. DOMENICA THRUST MIDLINE. VANE. HHH. LS DIM T/O. BIOX WNL ON RA. BT+. PPP NO EDEMA PRESENT AT THIS TIME. BP HIGH, HYDRALAZINE IV GIVEN FOR BP. PT ASSISTED TO BSC AT THIS TIME. PT ASSISTED BACK TO BED. CALL LIGHT IN REACH. ERMELINDA RETIED. PT DENIES OTHER NEEDS AT THIS TIME, CALL LIGHT IN REACH.
--- NOTE | 2019-01-25 16:41 | NUR ---
ASSESSMENT: PT IS DOING BETTER COGNITIVELY THIS AFTERNOON. SHE IS ABLE TO GET SENTENCES OUT QUICKER. SHE IS NOT HAVING OFF TOPIC COVERSATIONS EITHER. SHE HAS BEEN ORIENTED SINCE SHE WAS WOKEN UP THIS AM. PT WAS ABLE TO WORK WITH PT/OT. PT WAS ABLE TO AMBULATE THE [place] AROUND THE UNIT. VSS. STILL AT BEDSIDE STATES, PT IS DOING MUCH BETTER TODAY COMPARED TO YESTERDAY. PT WAS SLIGHTLY FEBRILE AT 100.5, IS GIVEN. DISCUSSED WITH PATIENT GETTING OOB AND WALKING ONCE MORE BEFORE DINNER. PT IS AGREEABLE. CALL LIGHT IN REACH, BED ALARM ON FOR SAFETY. WILL CONTINUE TO MONITOR.
--- NOTE | 2019-01-25 18:02 | NUR ---
SHIFT SUMMARY: PT OVERALL HAS DONE WELL TODAY. FOR THE START OF THE SHIFT PT WAS HAVING A HARD TIME COMPLETING HER SENTENCES/THOUGHTS. THROUGH OUT THE SHIFT PTS MENTATION HAS IMPROVED, HER THOUGHTS ARE MORE CLEAR AND SHE IS ABLE TO FORM COMPLETE THOUGHTS/SENTENCES. PT WAS ABLE TO PARTICIPATE WITH PT/OT, WHICH IS A HUGE IMPROVEMENT FROM YESTERDAY. SPENT THE DAY AT THE BEDSIDE, AND NOTED PTS IMROVEMENT. NO ACUTE CHANGES THIS SHIFT. PT IS CURRENTLY RESTING WITH EYES CLOSED RESP E/U. WILL REPORT TO ONCOMING RN.
--- NOTE | 2019-01-26 06:21 | NUR ---
SHIFT SUMMARY PT HAS REMAINED AOX4 THROUGHOUT SHIFT. VSS. PLEASANT AND COOPERATIVE WITH CARE. PT AMBULATES WITH STANDBY ASSIST, FWW AND GAIT BELT TO BATHROOM- GAIT MUCH IMPROVED FROM YESTERDAY AND PATIENT STATES SHE IS VERY CLOSE TO BASELINE STRENGTH. PT HAS NOT ATTEMPTED SELF-AMBULATION THROUGHOUT THE NIGHT AND HAS CALLED APPROPRIATELY FOR CARE. PT HAS SLEPT THROUGHOUT MUCH OF THE NIGHT, WAKING EASILY FOR CARE. MEDICATED ONCE FOR PAIN THAT DECREASED WITH TYLENOL. O2 SATS HAVE REMAINED >90% ON RA- PT DENIES DYSPNEA ON EXERTION. NO OTHER CHANGES FROM INITIAL ASSESSMENT. WILL CONTINUE TO MONITOR AND REPORT TO ONCOMING SHIFT RN. BED IN LOW POSITION, CALL LIGHT IN REACH. BED ALARM AND CHAIR ALARM SET FOR PATIENT SAFETY.
[2019-01-26 06:42] LABS: Anion Gap 9 mmol/L (6-16); Blood Urea Nitrogen 14 mg/dL (8-24); Bun/Creatinine Ratio 16.3 (12.0-20.0); CO2, Blood 26 mmol/L (21-32); Calcium, Blood 7.6 mg/dL (8.5-10.1); Chloride, Blood 110 mmol/L (98-108); Creatinine, Blood 0.86 mg/dL (0.40-1.00); Glomerular Filtration Rate >60 (60-); Glucose, Blood 93 mg/dL (70-99); Magnesium, Blood 1.4 mg/dL (1.6-2.4); Phosphorus, Blood 2.3 mg/dL (2.5-4.9); Potassium, Blood 3.1 mmol/L (3.5-5.5); Sodium, Blood 145 mmol/L (136-145)
[2019-01-26] MEDS ORDERED: ACET325 PO (09:53)
[2019-01-26] MEDS ORDERED: LEVE500 PO (09:54)
[2019-01-26] MEDS ORDERED: METO25 PO (09:56)
--- NOTE | 2019-01-26 12:41 | NUR ---
PATIENT STABLE FOR D/C. PICC LINE REMOVED. DISCHARGE INSTRUCTIONS, DISCHARGE MEDICATIONS, AND MEDICATION EDUCATION REVIEWED AND DISCUSSED WITH PATIENT AND FAMILY. PATIENT AND FAMILY VERBALIZED UNDERSTANDING AND DENIED FURTHER QUESTIONS. PT AWARE OF FOLLOW-UP APPT WITH PCP. PT DC'D VIA WHEELCHAIR TO WAITING CAR.
== END 2019-01-26 13:15 | disposition home or self-care (01) | DRG 100 ==
LOC: ER 04:46 → ICUW 06:20 → PCU 01-24 23:06
PROVIDERS: Emergency Medicine; Hospitalist; Internal Medicine; Internal Medicine Critical Care Medicine; Psychiatry & Neurology Neurology; ADMIT Internal Medicine
PROC: 5A1945Z Respiratory Ventilation, 24-96 Consecutive Hours (ICD-10-PCS; principal; 2019-01-20)
DX: G40.409 Other generalized epilepsy and epileptic syndromes, not intractable, without status epilepticus (principal); J96.01 Acute respiratory failure with hypoxia; G93.40 Encephalopathy, unspecified; E87.6 Hypokalemia; E83.42 Hypomagnesemia; N28.9 Disorder of kidney and ureter, unspecified; F10.21 Alcohol dependence, in remission; E83.52 Hypercalcemia
CPT/HCPCS: 31500; 31720; 36415; 36569; 36600; 51702; 70450; 70551; 71045; 80048; 80053; 80069; 80177; 81001; 82330; 82550; 82803; 82947; 83036; 83690; 83735; 84100; 84132; 84146; 84439; 84443; 84481; 84484; 85014; 85018; 85025; 85610; 85730; 86376; 86800; 87070; 87205; 92610; 93005; 93010; 94002; 94003; 94660; 95819; 96374-59; 96375-59; 96376-59; 97116; 97162; 97166; 97530; 97535; 99291-25; 99292; C1751; C1769; C9113; J0295; J0330; J0360; J0610; J1650; J1940; J1953; J2060; J2704; J3010; J3475; J3480; J7030; J7050; J7060

== ENCOUNTER 2019-07-30 19:07 | Emergency (ER) | payer MEDICARE, OTHER ==
[~2019-07-30] VITALS: Ht 162.6 cm; Wt 90.7 kg
[~2019-07-30 19:07] MED LIST changes: +ACET325 PO; +LEVE500 PO; +METO25 PO
[2019-07-30] MEDS ORDERED: Augmentin 875-1 EACH PO (20:05)
[2019-07-30] MEDS ORDERED: Norco 5-325 Ta1 EACH PO (20:05)
[2019-07-30] MEDS ORDERED: ONDA4ODT MM (20:05)
[2019-07-30 20:13] LABS: Source, Urine Voided
[2019-07-30 20:21] LABS: Bilirubin, Urine Neg (Neg); Blood, Urine 4+ (Neg); Glucose Qualitative, Urine Neg (Neg); Ketones, Urine Neg (Neg); Leukocyte Esterase, Urine 1+ (Neg); Nitrite, Urine Neg (Neg); Protein, Urine 2+ (Neg); Urobilinogen, Urine NORM (Normal)
[2019-07-30 20:23] LABS: Appearance, Urine Clear (Clear); Color, Urine Yellow (P-Yellow)
[2019-07-30 20:31] LABS: Bacteria Mod /hpf; Mucus Light (0-Heavy); Red Blood Cells, Urine 0-2 /hpf (0-2); Squamous Epithelial Cells Few /hpf (Few); White Blood Cells, Urine 0-2 /hpf (0-5)
[2019-07-30 21:06] LABS: BASOPHILS ABSOLUTE AUTO 0.03 K/mm3 (0.00-0.23); BASOPHILS PERCENT AUTO 1 % (0-2); EOSINOPHILS ABSOLUTE AUTO 0.03 K/mm3 (0.00-0.68); EOSINOPHILS PERCENT AUTO 1 % (0-6); Hematocrit 42.4 % (33.0-51.0); Hemoglobin 14.8 g/dL (11.5-16.0); IMMATURE GRAN ABSOLUTE AUTO 0.03 K/mm3 (0.00-0.10); IMMATURE GRAN PERCENT AUTO 1 % (0-1); LYMPHOCYTES ABSOLUTE AUTO 0.35 K/mm3 (0.84-5.20); LYMPHOCYTES PERCENT AUTO 6 % (21-46); MONOCYTES ABSOLUTE AUTO 0.41 K/mm3 (0.16-1.47); MONOCYTES PERCENT AUTO 7 % (4-13); Mean Corpuscular HGB 35.4 pg (26.0-34.0); Mean Corpuscular HGB Conc 34.9 g/dL (31.5-36.5); Mean Corpuscular Volume 101 fL (80-100); Mean Platelet Volume 9.5 fL (9.1-12.4); NEUTROPHILS ABSOLUTE AUTO 5.21 K/mm3 (1.96-9.15); NEUTROPHILS PERCENT AUTO 86 % (41-73); Platelet Count 266 K/mm3 (150-400); RDW Coefficient Variation 13.4 % (11.7-14.2); RDW Standard Deviation 49.7 fL (35.1-46.3); Red Blood Cell Count 4.18 M/mm3 (3.80-5.20); White Blood Cell Count 6.06 K/mm3 (4.00-11.30)
[2019-07-30 21:28] LABS: Albumin, Blood 3.4 g/dL (3.4-5.0); Albumin/Globulin Ratio 0.9 (0.8-1.8); Bilirubin, Total 0.5 mg/dL (0.1-1.0); Bun/Creatinine Ratio 8.6 (12.0-20.0); Creatinine, Blood 1.16 mg/dL (0.40-1.00); Globulin, Blood 3.9 g/dL (2.2-4.0); Potassium, Blood 3.5 mmol/L (3.5-5.5); Total Protein, Blood 7.3 g/dL (6.4-8.2)
== END 2019-07-30 23:18 | disposition home or self-care (01) ==
LOC: ER 19:07
PROVIDERS: Emergency Medicine
DX: K57.92 Diverticulitis of intestine, part unspecified, without perforation or abscess without bleeding (principal); E86.0 Dehydration; L29.0 Pruritus ani; K60.2 Anal fissure, unspecified; Z85.44 Personal history of malignant neoplasm of other female genital organs; Z88.5 Allergy status to narcotic agent; Z88.8 Allergy status to other drugs, medicaments and biological substances; Z79.899 Other long term (current) drug therapy
CPT/HCPCS: 80053; 81001; 82272; 83690; 85025; 87086; 96361; 96374; 96375; 99283-25; J2405; J3010; J7030

== ENCOUNTER 2020-05-20 22:56 | Inpatient (IN) | payer MEDICARE ==
[~2020-05-20] VITALS: Ht 165.1 cm; Wt 87.7 kg
[~2020-05-20 22:56] MED LIST changes: +Augmentin 875-1 EACH PO; +Norco 5-325 Ta1 EACH PO; +ONDA4ODT MM
[2020-05-21 00:18] LABS: BASOPHILS ABSOLUTE AUTO 0.05 K/mm3 (0.00-0.23); BASOPHILS PERCENT AUTO 0 % (0-2); EOSINOPHILS ABSOLUTE AUTO 0.02 K/mm3 (0.00-0.68); EOSINOPHILS PERCENT AUTO 0 % (0-6); Hematocrit 42.1 % (33.0-51.0); Hemoglobin 14.7 g/dL (11.5-16.0); IMMATURE GRAN ABSOLUTE AUTO 0.05 K/mm3 (0.00-0.10); IMMATURE GRAN PERCENT AUTO 0 % (0-1); LYMPHOCYTES ABSOLUTE AUTO 0.38 K/mm3 (0.84-5.20); LYMPHOCYTES PERCENT AUTO 3 % (21-46); MONOCYTES ABSOLUTE AUTO 0.59 K/mm3 (0.16-1.47); MONOCYTES PERCENT AUTO 5 % (4-13); Mean Corpuscular HGB 34.8 pg (26.0-34.0); Mean Corpuscular HGB Conc 34.9 g/dL (31.5-36.5); Mean Corpuscular Volume 100 fL (80-100); Mean Platelet Volume 9.7 fL (9.1-12.4); NEUTROPHILS ABSOLUTE AUTO 11.79 K/mm3 (1.96-9.15); NEUTROPHILS PERCENT AUTO 91 % (41-73); Platelet Count 482 K/mm3 (150-400); RDW Coefficient Variation 13.4 % (11.7-14.2); RDW Standard Deviation 49.4 fL (35.1-46.3); Red Blood Cell Count 4.22 M/mm3 (3.80-5.20); White Blood Cell Count 12.88 K/mm3 (4.00-11.30)
[2020-05-21 00:36] LABS: Albumin, Blood 3.5 g/dL (3.4-5.0); Albumin/Globulin Ratio 0.7 (0.8-1.8); Bilirubin, Total 0.8 mg/dL (0.1-1.0); Bun/Creatinine Ratio 14.6 (12.0-20.0); Creatinine, Blood 1.3 mg/dL (0.40-1.00); Globulin, Blood 5.2 g/dL (2.2-4.0); Potassium, Blood 3.2 mmol/L (3.5-5.5); Total Protein, Blood 8.7 g/dL (6.4-8.2)
[2020-05-21 00:43] LABS: Source, Urine Clean Catch
[2020-05-21 00:45] LABS: Blood, Urine 2+ (Neg); Glucose Qualitative, Urine Neg (Neg); Ketones, Urine 2+ (Neg); Leukocyte Esterase, Urine 3+ (Neg); Nitrite, Urine Neg (Neg); Protein, Urine 2+ (Neg); Urobilinogen, Urine 1+ (Normal)
[2020-05-21 00:52] LABS: Appearance, Urine Cloudy (Clear); Bilirubin, Urine 2+ (Neg); Color, Urine Amber (P-Yellow)
[2020-05-21 00:53] LABS: Bacteria Many /hpf; Red Blood Cells, Urine 0-2 /hpf (0-2); Squamous Epithelial Cells Few /hpf (Few); White Blood Cells, Urine TNTC /hpf (0-5)
[2020-05-21] MEDS ORDERED: METO100ER PO (03:04)
[2020-05-21 06:38] LABS: Alanine Aminotransfer (ALT/SGP 11 U/L (12-78); Albumin, Blood 2.8 g/dL (3.4-5.0); Albumin/Globulin Ratio 0.6 (0.8-1.8); Alk Phos 78 U/L (50-136); Anion Gap 12 mmol/L (6-16); Aspartate Aminotrans (AST/SGOT 15 U/L (12-37); Bilirubin, Total 0.5 mg/dL (0.1-1.0); Blood Urea Nitrogen 18 mg/dL (8-24); CO2, Blood 14 mmol/L (21-32); Calcium, Blood 8.6 mg/dL (8.5-10.1); Chloride, Blood 105 mmol/L (98-108); Globulin, Blood 4.5 g/dL (2.2-4.0); Glomerular Filtration Rate 59 (60-); Glucose, Blood 88 mg/dL (70-99); Phosphorus, Blood 3.1 mg/dL (2.5-4.9); Potassium, Blood 3.2 mmol/L (3.5-5.5); Sodium, Blood 131 mmol/L (136-145); Total Protein, Blood 7.3 g/dL (6.4-8.2)
--- NOTE | 2020-05-21 14:10 | NUR ---
TALKED TO ABOUT PAIN MEDS AND AFLUTTER. WAS 155-160 AND IS NOW TRENDING DOWN TO 130'S WITH SOME 1 TEENS. WAS THIS HIGH FOR ABOUT 1/2 HOUR. ADVISED PAIN STILL 7(1-10). ORDER DILAUDID 0.5 MG IV Q 2 HRS PRN. NPO.WCTM
--- NOTE | 2020-05-21 14:13 | NUR ---
ISTRATE AWARE DID NOT FINISH IV PROTONIX MD ORDERED POTASSIUM IV AND CAN NOT MIX WITH PROTONIX IV.
[2020-05-21 15:21] LABS: Campylobacter Sp Not Detected (NOT DETECT)
--- NOTE | 2020-05-21 15:21 | NUR ---
PER [facility].
[2020-05-21 15:22] LABS: Adenovirus F 40/41 Not Detected (NOT DETECT); Astrovirus Not Detected (NOT DETECT); Cryptosporidium Not Detected (NOT DETECT); Cyclospora Cayetanensis Not Detected (NOT DETECT); E. Coli O157 Not Detected (NOT DETECT); Entamoeba Histolytica Not Detected (NOT DETECT); Enteroaggregative E. coli-EAEC Not Detected (NOT DETECT); Enteropathogenic E. coli-EPEC Not Detected (NOT DETECT); Enterotoxigenic E. coli-ETEC Not Detected (NOT DETECT); Giardia Lamblia Not Detected (NOT DETECT); Norovirus GI/GII Not Detected (NOT DETECT); Plesiomonas Shigelloides Not Detected (NOT DETECT); Rotavirus A Not Detected (NOT DETECT); Salmonella Sp Not Detected (NOT DETECT); Sapovirus Not Detected (NOT DETECT); Shiga Toxin-prod E. coli-STEC Not Detected (NOT DETECT); Shigella/Enteroin E. coli-EIEC Not Detected (NOT DETECT); Vibrio Cholerae Not Detected (NOT DETECT); Vibrio Sp Not Detected (NOT DETECT); Yersinia Enterocolitica Not Detected (NOT DETECT)
--- NOTE | 2020-05-21 16:29 | NUR ---
PATIENT HARD IV START. IV FROM E.R. 22 GA RT Rei UPTONED AND Don BASS TO TRY AND START IV.
--- NOTE | 2020-05-21 18:40 | NUR ---
PATIENT ARRIVES FROM E. ABOUT 0655. CAME IN WITH LOWER MIDSTERNAL PAIN RAD TO BACK. W/N/V/D. STOOL SAMPLE SENT AND COMING BACK NEG. HX. DIVERTICULITIS. HAD U/S THIS AFTERNOON WHICH SHOWED 2 ULCERS. PER NPO FOR SURGICAL CONSULT WHICH HE TALKED TO ABOUT. POWERGLIDE PLACED RT UPPER ARM. NACL INFUSING AT 75 ML/HR AND FIRST BAG STILL RUNNING. NEW ONSET A-FLUTTER AND AT THIS TIME A-FLUTTER AT 77. PATIENT SEEMS TO GO ABOVE 100 WITH PAIN OR ANXIETY. HAS NOT C/O ANY NAUSEA WHILE ON THIS FLOOR. WCTM
--- NOTE | 2020-05-22 03:23 | NUR ---
SHIFT SUMMARY AWAKE AT INTERVALS, UP TO THE BATHROOM A FEW TIMES AND MADE CALLS TO . HR WAS IN THE 140'S A FEW TIMES, WHEN CHECKED THOSE TIMES, WAS EITHER UP TO THE BATHROOM OR VOICED ANXIETY RE SPEAKING TO THE MD RE HER POSSIBLE PROCEDURE IN THE AM. NO NOTED ACUTE DISTRESS OTHERWISE. CALL LIGHT IN REACH
[2020-05-22 06:35] LABS: BASOPHILS ABSOLUTE AUTO 0.06 K/mm3 (0.00-0.23); BASOPHILS PERCENT AUTO 1 % (0-2); EOSINOPHILS ABSOLUTE AUTO 0.06 K/mm3 (0.00-0.68); EOSINOPHILS PERCENT AUTO 1 % (0-6); Hematocrit 33.8 % (33.0-51.0); Hemoglobin 11.5 g/dL (11.5-16.0); IMMATURE GRAN ABSOLUTE AUTO 0.06 K/mm3 (0.00-0.10); IMMATURE GRAN PERCENT AUTO 1 % (0-1); LYMPHOCYTES ABSOLUTE AUTO 0.55 K/mm3 (0.84-5.20); LYMPHOCYTES PERCENT AUTO 6 % (21-46); MONOCYTES ABSOLUTE AUTO 0.79 K/mm3 (0.16-1.47); MONOCYTES PERCENT AUTO 8 % (4-13); Mean Corpuscular HGB 34.5 pg (26.0-34.0); Mean Corpuscular Volume 102 fL (80-100); Mean Platelet Volume 10.1 fL (9.1-12.4); NEUTROPHILS ABSOLUTE AUTO 8.54 K/mm3 (1.96-9.15); NEUTROPHILS PERCENT AUTO 85 % (41-73); Platelet Count 351 K/mm3 (150-400); RDW Coefficient Variation 13.6 % (11.7-14.2); RDW Standard Deviation 51.3 fL (35.1-46.3); Red Blood Cell Count 3.33 M/mm3 (3.80-5.20); White Blood Cell Count 10.06 K/mm3 (4.00-11.30)
[2020-05-22 06:50] LABS: Bun/Creatinine Ratio 13.1 (12.0-20.0); Calcium, Blood 8.7 mg/dL (8.5-10.1); Creatinine, Blood 0.99 mg/dL (0.40-1.00); Potassium, Blood 3.2 mmol/L (3.5-5.5)
[2020-05-22] MEDS ORDERED: CEFP200 PO (16:11)
[2020-05-22] MEDS ORDERED: ACET325 PO (16:11)
[2020-05-22] MEDS ORDERED: DILT30 PO (16:12)
[2020-05-22] MEDS ORDERED: Norco 5-325 Ta1 EACH PO (16:13)
[2020-05-22] MEDS ORDERED: PANT40 PO (16:13)
[2020-05-22] MEDS ORDERED: ONDA4ODT MM (16:13)
[2020-05-22] MEDS ORDERED: POTCHL20ER PO (16:14)
[2020-05-22] MEDS ORDERED: Florastor250 MG PO (16:15)
--- NOTE | 2020-05-22 17:46 | NUR ---
DISCHARGE NOTE PATIENT DISCHARGED TO HOME. PATIENT ALERT AND ORIENTED THROUGHOUT THIS SHIFT. PATIENT INDEPENDENT IN THE ROOM. PATIENT AND PROVIDED WITH DISCHARGE INSTRUCTIONS. DR RUCKER IN THE ROOM THIS AFTERNOON TO CONSULT REGARDING SURGICAL NEED. DR RUCKER STATES THIS IS NOT A SURGICAL CASE AT THIS TIME DUE TO ULCER NOT PREFERATING. PATIENT PROVIDED WITH INFORMATION REGARDING DIET WITH ULCERS. PATIENT DRESSED INDEPENDENTLY FOR DISCHARGE. PATIENT INDEPENDENT TO WHEELCHAIR AND FROM WHEELCHAIR TO VEHICLE.
== END 2020-05-22 17:15 | disposition home or self-care (01) | DRG 872 ==
LOC: ER 22:56 → MEDS 22:58 → ERHOLD 22:58 → ER 22:58 → ERHOLD 05-21 02:28 → MEDS 05-21 06:48
PROVIDERS: Family Medicine; Physician Assistant; ADMIT Internal Medicine
DX: A41.9 Sepsis, unspecified organism (principal); N39.0 Urinary tract infection, site not specified; N17.9 Acute kidney failure, unspecified; K29.80 Duodenitis without bleeding; I10 Essential (primary) hypertension; I48.91 Unspecified atrial fibrillation; Z85.44 Personal history of malignant neoplasm of other female genital organs; K27.9 Peptic ulcer, site unspecified, unspecified as acute or chronic, without hemorrhage or perforation; E86.0 Dehydration
CPT/HCPCS: 0097U; 36415; 74177; 76700; 80048; 80053; 80069; 81001; 83605; 83690; 85025; 87086; 87338; 93005; 93010; 96361; 96365; 96366; 96372; 96374; 96375; 96376; 99285-25; A9270; A9270-GY; C9113; G0378; J0696; J0744; J1170; J1650; J2405; J3010; J7030; J7060; Q9967